=== PATIENT | female | born 1980 | race American Indian/Alaskan Native ===

== ENCOUNTER 2019-01-16 05:27 | Inpatient (IN) | payer MEDICAID, OTHER ==
--- NOTE | 2019-01-15 23:11 | History and Physical Report ---
History of Present Illness Date of examination: 01/11/19 History of present illness: Patient admitted for repeat section. Patient informed the risks of the surgery include bleeding possibly bleeding heavy enough to require blood transfusion, infection possible damage to bowel bladder ureter. Patient understands that due to her previous surgery she is an increased risks of adjacent organ damage. Patient's questions answered. Patient understands and desires to proceed. Menstrual History Regularity: regular Menses every: 28 days Duration: 5 LMP: 04/16/2018 LMP reliability: definite LMP character: normal test type: urine test Date: 08/01/2018 BC at conception: BCP Planned ? no EDC Calculations LMP: 01/21/2019 EDC Confirmation: 01/21/2019 Past History : 5 Term Births: 3 Premature Births: 0 Living Children: 3 Para: 2 Mult. Births: 0 Prev : 1 Aborta: 1 Elect. Ab: 0 Spont. 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 of genital herpes: no Partner hx. of genital herpes: no Rash, Viral, or Febrile illness since last LMP? no Varicella/Chicken Pox Status: Unknown TB Risk: no Genetic History ADVANCED MATERNAL AGE Congenital Heart Defect: Mom: no Dad: no Gianfranco Disease: Mom: no Dad: no Thalassemia Mom: no Dad: no Neural Tube Defect Mom: no Dad: no Down's Syndrome Mom: no Dad: no Samir-Sachs Mom: no Dad: no Sickle Cell Disease/Trait Mom: no Dad: no Hemophilia Mom: no Dad: no Muscular Dystrophy Mom: no Dad: no Cystic Fibrosis Mom: no Dad: no [place] Chorea Mom: no Dad: no Mental Retardation Mom: no Dad: no Fragile X Mom: no Dad: no Other Genetic/Chromosomal Disorder Mom: no Dad: no Child w/other defect Mom: no Dad: no Enviromental Exposures Xray Exposure: no Medication, drug, or alcohol use since LMP: no Chemical/Other Exposure: no Exposure to Cat Liter: no Hx of Parvovirus (Fifth Disease): no Occupational Exposure to Children: none Current Allergies (reviewed today): No known allergies Past History Past Medical History: other (See HPI) Past Surgical History: other (See HPI) 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 (See HPI) Family/Genetic History: other (See HPI) Social history: full code, other (See HPI) - Obstetrical History Expected Date of Delivery: 01/21/19 Actual Gestation: 39 Week(s) 2 Day(s) : 5 Para: 3 Hx # Term Pregnancies: 3 Number of Pregnancies: 0 Spontaneous Abortions: 1 Induced : 0 Number of Living Children: 3 Medications and Allergies Allergies Allergy/AdvReac Type Severity Reaction Status Date / Time No Known Allergies Allergy Verified 01/16/19 05:48 Home Medications Medication Instructions Recorded Confirmed Last Taken Type Acetaminophen [Acetaminophen TAB] 500 mg PO Q6HR PRN #25 tablet 07/29/16 Unknown Rx Review of Systems Constitutional: other (See HPI) - Physical Exam Breasts: Positive: deferred Cardiovascular: Regular rate Lungs: Positive: Normal air movement Abdomen: Positive: normal appearance, soft Extremities: Positive: edema Results Result Diagrams: 01/16/19 05:58 All other labs normal. Assessment and Plan - Patient Problems (1) Maternal care for scar from previous delivery Current Visit: No Status: Acute Qualifiers: Previous delivery type: low transverse Qualified Code(s): O34.211 - Maternal care for low transverse scar from previous delivery Plan to address problem: Patient informed the risks of the surgery include bleeding possibly bleeding heavy enough to require blood transfusion, infection possible damage to bowel bladder ureter. All questions answered. Patient agrees to proceed (2) Encounter for sterilization Current Visit: No Status: Acute Plan to address problem: Patient desires permanent sterilization. She declined temporary contraceptives. She understands that this surgery would make her permanently sterile. She also understands the approximate 1% failure rate. The patient understands all the above and desires to proceed.
[~2019-01-16 05:27] MED LIST: PITOCin/NS 20 UNIT/1000ML DRIP 20 UNITS/1,000 ML BAG IV SCH
[2019-01-16 06:09] LABS: Basophils # (Auto) 0.1 K/mm3 (0.0-0.1); Basophils % (Auto) 1.2 % (0.0-1.8); Eosinophils # (Auto) 0.1 K/mm3 (0.0-0.4); Eosinophils % (Auto) 1.1 % (0.0-4.3); Hematocrit 32.2 % (30.3-42.9); Hemoglobin 10.6 gm/dl (10.1-14.3); Lymphocytes # (Auto) 3.9 K/mm3 (1.2-5.4); Lymphocytes % (Auto) 37.1 % (13.4-35.0); Mean Corpuscular HGB Conc 33 % (30-34); Mean Corpuscular Volume 75 fl (79-97); Monocytes % (Auto) 9.1 % (0.0-7.3); Platelet Count 275 K/mm3 (140-440); Red Blood Count 4.31 M/mm3 (3.65-5.03); Red Cell Distribution Width 17.2 % (13.2-15.2)
[2019-01-16] MEDS: LACTATED RINGERS 1,000 ML IV SCH ×2 (06:50→07:17)
[2019-01-16] MEDS ORDERED: BICITRA PO ONE (07:00)
[2019-01-16] MEDS ORDERED: ANCEF/STERILE WATER 2 GM/20 ML 2 GM/20 ML SYRINGE IV NR (07:00)
[2019-01-16] MEDS ORDERED: PEPCID IV ONE (07:00)
[2019-01-16] MEDS ORDERED: REGLAN IV ONE (07:00)
--- NOTE | 2019-01-16 07:13 | Anesthesia Consultation ---
Anesthesia Consult and Med Hx - Airway Anesthetic Teeth Evaluation: Good ROM Head & Neck: Adequate Mental/Hyoid Distance: Adequate Mallampati Class: Class I Intubation Access Assessment: Good - Pulmonary Exam CTA: Yes - Pre-Operative Health Status ASA Pre-Surgery Classification: ASA2 Proposed Anesthetic Plan: Spinal - Pulmonary Hx Asthma: No - Cardiovascular System Hx Hypertension: No - Central Nervous System Hx Seizures: No Hx Psychiatric Problems: No - Endocrine Hx Renal Disease: No Hx Hypothyroidism: No Hx Hyperthyroidism: No - Hematic Hx Anemia: No Hx Sickle Cell Disease: No - Other Systems Hx Alcohol Use: No
--- NOTE | 2019-01-16 07:13 | Anesthesia Day of Surgery ---
Anesthesia Day of Surgery - Day of Surgery Patient Examined: Yes Patient H&P Reviewed: Yes Patient is NPO: Yes Beta Blockers: No Cardiac Clearance: No Pulmonary Clearance: No [place]'s Test: N/A
[2019-01-16] MEDS ORDERED: SUBLIMAZE ONE (07:21)
[2019-01-16] MEDS ORDERED: DILAUDID IV PRN (07:30)
[2019-01-16] MEDS ORDERED: PHENERGAN PR PRN (07:30)
[2019-01-16] MEDS ORDERED: BENADRYL IV PRN (07:30)
[2019-01-16] MEDS ORDERED: ZOFRAN IV PRN ×2 (07:30→13:03)
[2019-01-16] MEDS ORDERED: PHENERGAN PO PRN (07:30)
[2019-01-16] MEDS ORDERED: NARCAN 0.4 MG/1 ML IV PRN ×2 (07:30→13:03)
[2019-01-16] MEDS ORDERED: NEO SYNEPHRINE ONE (07:44)
[2019-01-16] MEDS ORDERED: ROBINUL ONE (07:45)
[2019-01-16] MEDS ORDERED: SODIUM CHLORIDE FLUSH SYRINGE 10 ML IV PRN (08:00)
[2019-01-16] MEDS ORDERED: LACTATED RINGERS 2,000 ML ONE (08:34)
[2019-01-16] MEDS ORDERED: TORADOL ONE (08:34)
--- NOTE | 2019-01-16 08:54 | Operative Report ---
Operative Report Operative Report: Date of procedure: 01/16/2019 Pre-operative diagnosis: Intrauterine at 39 weeks with previous anil maximino section and desires permanent sterilization Post-operative diagnosis: Same plus macrosomia Procedure name(s): Repeat low transverse section with bilateral tubal ligation of the modified Evangelista type Surgeon: Bobby Mack MD Supervisor Irrigation: Anesthesia: Spinal EBL: 1200 mL Complications: None Findings:. Patient had normal uterus tubes and ovaries bilaterally. Male weighing 10 lbs. 4 oz. Apgars 8 at 1 minute and 9 at 5 minutes Specimen(s): Portion of the left and right fallopian tubes Procedure: The patient was brought to the operating room. A spinal was placed without any complications. She was then placed in left lateral tilt. Prepped and draped in the usual sterile manner. After testing for adequate anesthesia level, a Pfannenstiel incision was made through her previous scar. This incision was taken down to the fascia. The fascia was then nicked in the midline. This incision was extended out laterally with Morales scissors. The fascia was then sharply and bluntly from the underlying rectus muscles. The rectus muscles were bluntly and sharply . The peritoneum was then entered with the mud analysis operator's fingers. This incision was spread vertically with care not to damage the bladder below. The Anihs self-retaining tractor was then placed without any difficulty. The bladder flap was then formed sharply and bluntly with Metzenbaum scissors. A transverse incision was made in lower uterine segment. This incision was extended laterally with the operators fingers. The amniotic sac was then entered bluntly with the opera tor's fingers. The infant was delivered from the vertex position with the assistance of vacuum. was Bulb suction on the mother's abdomen. Cord was double clamped and cut. The infant was then passed to the nursery personnel who were in attendance. The above scores were given by the nursery personnel. The placenta was then bluntly removed. The uterus was then externalized and wiped clean the remaining products. The uterine incision was closed in layers. The first incision was closed in a locking manner using 0 Vicryl. This was followed by imbricating stitch also with 0 Vicryl. Attention was then switched to the patient's fallopian tubes. Each fallopian tube was identified by its fimbriated end. A portion of each tube was grabbed with the Austin clamp approximately 2-3 cm from the cornua. Each loop was double ligated with 0 chromic suture. The loop were cut with Metzenbaum scissors. Each stump was found to be hemostatic and cauterized with the Bovie. Attention was then switched back to the uterine closure. This closure was hemostatic at additional [id number] sutures. The bladder flap was copiously irrigated and found to be hemostatic. The pelvis was copiously irrigated and found to be hemostatic. The uterus was then placed back to the patient's abdomen. The retractors were removed. The rectus muscles were inspected and found to be hemostatic. The fascia was then closed in a running manner using 0 Vicryl. This incision was hemostatic irrigation Bovie. The skin was reapproximated with 4-0 Vicryl subcuticularly. The patient tolerated procedure well. Her urine was clear. The was admitted to the [facility] nursery. The patient was accompanied to recovery room in good condition. Instrument count correct 3
--- NOTE | 2019-01-16 08:57 | Post Anesthesia Evaluation ---
- Post Anesthesia Evaluation Patient Participated: Yes Airway Patent: Yes Stable Respiratory Function: Yes Nausea/Vomiting: No Temp > 96.8F: Yes Pain Manageable: Yes Adequeate Hydration: Yes Anesthesia Complications: No Block Receding Appropriately: Yes Patient on Ventilator: No
[2019-01-16] MEDS ORDERED: FEOSOL PO SCH (13:03)
[2019-01-16] MEDS ORDERED: TORADOL IV PRN (13:03)
[2019-01-16] MEDS ORDERED: MILK OF MAGNESIA PO PRN (13:03)
[2019-01-16] MEDS ORDERED: SODIUM CHLORIDE FLUSH SYRINGE 10 ML IV NR (13:03)
[2019-01-16] MEDS ORDERED: MYLICON PO PRN (13:03)
[2019-01-16] MEDS ORDERED: D5LR 1,000 ML IV SCH (13:03)
[2019-01-16] MEDS ORDERED: PITOCin/NS 20 UNIT/1000ML DRIP 20 UNITS/1,000 ML BAG IV SCH (13:03)
[2019-01-16] MEDS ORDERED: LANSINOH TP PRN (13:03)
[2019-01-16] MEDS ORDERED: PRENATAL VITAMIN PO SCH (13:03)
[2019-01-16] MEDS ORDERED: TUCKS PAD TP PRN (13:03)
[2019-01-16] MEDS: ANCEF/NS 1 GM/50 ML 1 GM/50 ML BAG IV SCH (17:33)
[2019-01-17 00:30] LABS: Hemoglobin 8.1 gm/dl (10.1-14.3)
[2019-01-17] MEDS: NORCO 5/325 PO PRN ×3 (00:56→20:27)
[2019-01-17] MEDS: IBUPROFEN PO PRN ×3 (00:57→20:27)
[2019-01-17] MEDS: ANCEF/NS 1 GM/50 ML 1 GM/50 ML BAG IV SCH (03:25)
--- NOTE | 2019-01-17 06:05 | Progress Note ---
Assessment and Plan - Patient Problems (1) delivery delivered Onset Date: ~01/16/19 Current Visit: Yes Status: Acute Plan to address problem: Pt in good spirits No c/o voiced VSS FF @ umb Lochia small Dressing D&I H&H 05/01 drop r/t blood loss from surgery Asymptomatic Doing well s/p r c/s P: continue pathway Advance diet and activity as tolerated. Subjective - Subjective Date of service: 01/17/19 (no c/o voiced) Principal diagnosis: Day # 1 s/p repeat section with tubal Patient reports: voiding normally, pain well controlled, ambulating normally [place]: doing well Objective - Vital Signs Latest vital signs: Vital Signs Temp Pulse Resp BP BP Pulse Ox 01/17/19 00:57 18 01/17/19 00:56 18 01/17/19 00:00 98.7 F 89 18 118/79 01/16/19 20:00 98.7 F 77 18 114/78 01/16/19 16:43 98.2 F 64 18 105/56 98 01/16/19 12:06 98 F 71 18 99/59 01/16/19 10:21 86 108/61 01/16/19 09:45 63 20 111/63 98 01/16/19 09:30 59 L 18 122/62 98 01/16/19 09:15 61 20 115/55 98 01/16/19 09:10 56 L 18 114/69 97 01/16/19 09:05 63 18 109/55 98 01/16/19 09:00 97.6 F 64 17 90/69 99 Intake and Output 01/16/19 01/16/19 01/17/19 14:59 22:59 06:59 Intake Total 1800 530 200 Output Total 300 1400 Balance 1500 -870 200 Intake: IV 1800 50 ANCEF/NS 1 GM/50 ML 1 gm 50 In 50 ml @ 100 mls/hr IV Q8H KATH Rx#:[id number] Lactated Ringers 1,000 ml 1000 @ 2250 mls/hr IV PREOP KATH Rx#:[id number] Oral 0 480 200 Output: Urine 300 1400 Indwelling Catheter 1400 Uretheral (Mckay) 300 Other: Total, Intake Amount 0 480 200 Total, Output Amount 400 Estimated Blood Loss 1,200 - Exam Breasts: Present: normal Cardiovascular: Present: Regular rate Lungs: Present: Normal air movement Abdomen: Present: normal appearance, soft, normal bowel sounds Uterus: Present: normal, fundal height at umbilicus Extremities: Present: normal Deep Tendon Reflex Grade: Normal +2 Incision: Present: normal, dry, intact, dressed (to be removed) - Labs Labs: Abnormal lab results 01/16/19 01/17/19 Range/Units 05:58 00:13 Hgb 8.1 L (10.1-14.3) gm/dl Hct 26.0 L D (30.3-42.9) % MCV 75 L (79-97) fl MCH 25 L (28-32) pg RDW 17.2 H (13.2-15.2) % Lymph % (Auto) 37.1 H (13.4-35.0) % Pierce % (Auto) 9.1 H (0.0-7.3) % Pierce # 1.0 H (0.0-0.8) K/mm3
[2019-01-18] MEDS: IBUPROFEN PO PRN ×2 (01:51→12:58)
[2019-01-18] MEDS: NORCO 5/325 PO PRN ×3 (01:51→12:58)
--- NOTE | 2019-01-18 08:36 | Discharge Summary ---
Providers - Providers Date of Admission: 01/16/19 05:27 Date of discharge: 01/18/19 (desires d/c home) Attending physician: SARAY FARIAS 01/16/19 13:03 Consult to Bobj Developer [CONS] Routine Reason For Exam: Primary care physician: SARAY FARIAS Hospitalization Reason for admission: repeat c/s w/ tubal Pertinent studies: postop H&H 8.1/26.0, asymptomatic anemia from acute blood loss Procedures: repeat c/s with btl Hospital course: uncomplicated c/s and postop course Disposition: DC- TO HOME OR SELFCARE - Discharge Diagnoses (1) delivery delivered Status: Acute Core Measure Documentation - Palliative Care Palliative Care/ Comfort Measures: Not Applicable - Core Measures Any of the following diagnoses?: none Exam - Constitutional Vitals: Temp Pulse Resp BP Pulse Ox 98.6 F 87 18 121/65 99 01/17/19 23:52 01/17/19 16:25 01/17/19 23:52 01/17/19 23:52 01/16/19 21:35 General appearance: Present: no acute distress, well-nourished - EENT Eyes: Present: PERRL ENT: hearing intact, clear oral mucosa - Neck Neck: Present: supple, normal ROM - Respiratory Respiratory effort: normal Respiratory: bilateral: CTA - Cardiovascular Heart Sounds: Present: S1 & S2. Absent: rub, click - Extremities Extremities: pulses symmetrical, No edema Peripheral Pulses: within normal limits - Abdominal General gastrointestinal: Present: soft, non-tender, non-distended, normal bowel sounds Female genitourinary: Present: normal - Integumentary Integumentary: Present: clear, warm, dry - Musculoskeletal Musculoskeletal: gait normal, strength equal bilaterally - Psychiatric Psychiatric: appropriate mood/affect, intact judgment & insight - Neurologic Neurologic: CNII-XII intact, moves all extremities - Additional findings Additional findings: incision D&I, , lochia scant Plan Activity: advance as tolerated Diet: regular Wound: open to air, keep clean and dry Follow up with: SARAY FARIAS MD [Primary Care Provider] - 7 Days (Congratulations! Please call [phone] to schedule your incision check and your son's circumcision in 1 week (if you decide). Bring EMLA cream to your son's visit and await further teaching. Call for any questions or concerns. ) Prescriptions: Lidocain2.5%/Prilocai2.5% [Emla] 5 gm TP ONCE #1 tube Ferrous Sulfate [Feosol 325 MG tab] 325 mg PO BID #60 tablet Ibuprofen [Motrin 800 MG tab] 800 mg PO Q6H PRN #30 tablet PRN Reason: Pain oxyCODONE /ACETAMINOPHEN [Percocet 5/325 mg] 1 - 2 tab PO Q4H PRN #25 tablet PRN Reason: Pain, Moderate
[2019-01-18] MEDS ORDERED: M-M-R II VACCINE SUB-Q ONE (11:51)
[2019-01-18] MEDS ORDERED: BOOSTRIX IM ONE (11:51)
[2019-01-18 13:33] VITALS: BP 136/65
[2019-01-19] MEDS ORDERED: M-M-R II VACCINE SUB-Q ONE (06:00)
[2019-01-19] MEDS ORDERED: BOOSTRIX IM ONE (06:00)
== END 2019-01-18 13:21 | disposition home or self-care (01) | DRG 765 ==
LOC: APU 05:27 → OB 10:21
PROVIDERS: ADMIT Obstetrics & Gynecology; ATTEND Obstetrics & Gynecology
PROC: 10D00Z1 Extraction of Products of Conception, Low, Open Approach (ICD-10-PCS; principal; 2019-01-16)
PROC: 0UT70ZZ Resection of Bilateral Fallopian Tubes, Open Approach (ICD-10-PCS; 2019-01-16)
PROC: 3E0234Z Introduction of Serum, Toxoid and Vaccine into Muscle, Percutaneous Approach (ICD-10-PCS; 2019-01-18)
DX: O34.219 Maternal care for unspecified type scar from previous cesarean delivery (principal); D62 Acute posthemorrhagic anemia; Z3A.39 39 weeks gestation of pregnancy; Z37.0 Single live birth; Z23 Encounter for immunization; O36.63X0 Maternal care for excessive fetal growth, third trimester, not applicable or unspecified; O90.81 Anemia of the puerperium
CPT/HCPCS: 36415; 85014; 85018; 85025; 86850; 86900; 86901; 88302; 90707; 90715; G0378; C1765; J0690; J1885; J2370; J2405; J2590; J2765; J3010; J7120; J7121